=== PATIENT | female | born 1950 | race African-American/Black ===

== ENCOUNTER 2016-04-23 18:15 | Inpatient (IN) | payer OTHER ==
--- NOTE | 2016-04-23 18:54 | PROVIDER DOCUMENTATION ---
HPI-General Adult - General Chief Complaint: Allergic Reaction Stated Complaint: STOMACH PAIN/ITCHING Time Seen by Provider: 04/23/16 18:21 Source: patient Allergies/Adverse Reactions: Patient Allergies Allergy/AdvReac Type Severity Reaction Status Date / Time No Known Allergies Allergy Verified 01/08/15 15:09 Home Medications: Home Medication List Medication Instructions Recorded Confirmed Last Taken Type Bisoprolol Fumarate/Hctz [Ziac 1 each PO DAILY 01/08/15 01/08/15 01/08/15 History 10-6.25 mg Tablet] Estradiol [Estrace] 1 mg PO DAILY 01/08/15 01/08/15 01/08/15 History Fentanyl 25 Microgm/Hr Patch 1 each TD Q72H 01/08/15 01/08/15 01/08/15 History [Duragesic 25 Microgm/Hr Patch] Gabapentin 800 mg PO DAILY 01/08/15 01/08/15 01/08/15 History Hydralazine [Apresoline] 25 mg PO DAILY 01/08/15 01/08/15 01/08/15 History Ibuprofen 400 mg PO Q4-6H PRN PRN #90 tablet 01/08/15 Unknown Rx Insulin Aspart Prot/Insuln Asp 50 unit SQ DAILY 01/08/15 01/08/15 01/08/15 History [Novolog Mix 70-30 Vial] Metformin E.r. [Glucophage Xr] 500 mg PO BID CC 01/08/15 01/08/15 01/08/15 History Mupirocin Ointment [Bactroban 1 applicatn TOP TID #1 tube 01/08/15 Unknown Rx Ointment] Omeprazole [Prilosec] 20 mg PO DAILY@0700 01/08/15 01/08/15 01/08/15 History PRAVAstatin [Pravachol] 40 mg PO DAILY 01/08/15 01/08/15 01/08/15 History Tizanidine [Zanaflex] 4 mg PO QHS 01/08/15 01/08/15 01/08/15 History Diphenoxylate/Atropine [Lomotil] 1 each PO 4XDAY PRN PRN #20 tablet 02/15/15 Unknown Rx - History of Present Illness -Gen Adult Nature of Presenting Problems: Pt is a 66 y/o F c chief compliant of itching x several months. Pt has seen her PCP (Dr. Ribeiro) who prescribed Charo and Decadron. Pt goes to the pain clinic and her pcp thinks that it may be a side effect of the narcotic pain medication. Pt has a h/o back surgery, RA, diabetes. Pt denies exposure to any other persons who may be itching. Review of Systems - Adult - REVIEW OF SYSTEMS - ADULT Constitutional: reports: no symptoms reported. denies: chills, fatique Eyes: reports: no symptoms reported. denies: blurred vision, double vision Ears, Nose, Mouth & Throat: reports: no symptoms reported. denies: ear pain, nose pain Cardiovascular: reports: no symptoms reported. denies: chest pain, orthopnea Respiratory: reports: no symptoms reported. denies: cough, shortness of breath Gastrointestinal: reports: no symptoms reported. denies: abdominal pain, nausea Genitourinary: reports: no symptoms reported. denies: dysuria, frequent UTI's Musculoskeletal: reports: no symptoms reported. denies: joint pain, joint swelling Integumentary: reports: itching, skin sores/ulcer. denies: hives Neurological: reports: no symptoms reported. denies: numbness, paresthesia Psychiatric: reports: no symptoms reported. denies: anxiety, emotional problems Endocrine: reports: no symptoms reported. denies: cold intolerance, heat intolerance Hematologic/Lymphatic: reports: no symptoms reported. denies: blood clots, low blood count Allergic/Immunologic: reports: no symptoms reported. denies: allergic reactions , eczema All Other Systems: Reviewed and Negative Past History - Adult - PAST MEDICAL HISTORY-ADULT Review of Records: reports: Old Records Reviewed, Nursing Assessment Review, Medications Reviewed, Social history reviewed & non-contributory. Major Childhood Illnesses: reports: denies history Cardiovascular: reports: HTN, hyperlipidemia Respiratory: reports: denies history Gastrointestinal: reports: denies history Obstetrical/Gynecological: reports: denies history Genitourinary: reports: denies history Musculoskeletal: reports: denies history Neurological: reports: denies history Endocrine/Immune: reports: Diabetes (insulin dependent. ) Other Conditions: reports: denies history - PRIOR SURGERIES/PROCEDURES Surgical/Procedure History: reports: cholecystectomy, hysterectomy - IMMUNIZATION STATUS Childhood Immunizations: See Nurse Assessment Flu Vaccine: See Nurse Assessment - FAMILY HISTORY Family History: reviewed, not pertinent - SOCIAL HISTORY Smoking: denies Substance Use: none/never Alcohol Use Frequency: never Living Situation: family Physical Exam-General - PHYSICAL EXAM-ADULT Initial Vital Signs Reviewed: Yes - CONSTITUTIONAL General Appearance: appears well, alert, no apparent distress - EYES Eyes: PERRL/EOMI, pink conjunctivae - HEAD, EARS, NOSE, MOUTH & THROAT HENMT: normocephalic/atraumatic, moist mucous membranes, normal ENT inspection - NECK Neck: non-tender - RESPIRATORY Respiratory: chest non-tender, lungs clear, normal breath sounds - CARDIOVASCULAR Cardiovascular: normal peripheral pulses, regular rate, rhythm, no edema - CHEST (BREASTS) Chest/Breast: deferred - GASTROINTESTINAL (ABDOMEN) Abdominal Exam: normal bowel sounds, non tender, soft - LYMPHATIC Lymphatic: no adenopathy - MUSCULOSKELETAL Back Exam: normal inspection, no CVA tenderness, no vertebral tenderness Extremity: normal range of motion, non-tender, normal gait - SKIN Integumentary: rash, other (pruritis) - NEUROLOGIC Neurologic: grossly normal, no motor/sensory deficits - PSYCHIATRIC Psych/Mental Status: normal mood/affect, normal thought content, normal thought process, oriented x 3 Progress - PLAN OF CARE/RESULTS Progress/Plan/Lab Results: Orders Category Date Time Status CT ABD/PELVIS W/ IV CONT ONLY [CT] Stat Exams 04/23/16 21:11 Taken ACETAMINOPHEN [TDM] Stat Lab 04/23/16 20:45 Completed ACETONE SERUM [CHEM] Stat Lab 04/23/16 20:45 Completed AMMONIA [CHEM] Stat Lab 04/23/16 21:20 Completed AMYLASE [CHEM] Stat Lab 04/23/16 21:20 Completed CBC WITH ELECTRONIC DIFF [HEME] Stat Lab 04/23/16 20:05 Completed CMP [COMPREHENSIVE METABOLIC PANEL] [CHEM] Stat Lab 04/23/16 20:05 Completed HEPATITIS PROFILE [HH] Stat Lab 04/23/16 20:45 Received LIPASE [CHEM] Stat Lab 04/23/16 21:20 Completed UA [URINALYSIS PL W/POSS RFLX CULT] [URINALYSIS] Stat Lab 04/23/16 21:35 Completed URINE CULTURE [RM] Routine Lab 04/23/16 21:52 Ordered 0.9% Sodium Chloride Inj [Ns] 1,000 ml Med 04/23/16 20:51 Discontinued IV 999 mls/hr Hydroxyzine Med 04/23/16 18:55 Discontinued 10 mg PO NOW ONE Hydroxyzine Liquid Med 04/23/16 20:08 Discontinued 10 mg .ROUTE .STK-MED ONE Insulin Human Reg Dose ([address] [Humulin R Dose ([place] Med 04/23/16 21:09 Discontinued )] 7 dose .ROUTE .STK-MED ONE Insulin Human Regular [Humulin R] Med 04/23/16 20:52 Discontinued 7 unit IV NOW ONE Lorazepam [Ativan] Med 04/23/16 18:55 Discontinued 1 mg IM NOW ONE Potassium Chloride E.r. [Klor-Con] Med 04/23/16 20:54 Discontinued 40 meq PO NOW ONE Laboratory Tests 04/23/16 04/23/16 04/23/16 20:05 20:05 20:45 WBC 4.62 L RBC 4.67 Hgb 12.4 Hct 37.1 MCV 79.4 L MCH 26.6 L MCHC 33.4 RDW Std Deviation 15.2 H Plt Count 172 MPV 13.2 H Immature Gran % (Auto) 0.0 Neut % (Auto) 55.5 Lymph % (Auto) 36.1 Daniels % (Auto) 7.1 Eos % (Auto) 0.9 Baso % (Auto) 0.4 Immature Gran # (Auto) 0.00 Neut # (Auto) 2.56 Lymph # (Auto) 1.67 Daniels # (Auto) 0.33 Eos # (Auto) 0.04 Baso # (Auto) 0.02 Sodium 133 L Potassium 3.0 L Chloride 91 L Carbon Dioxide 29 Anion Gap 14 BUN 12 Creatinine 0.8 Estimated GFR/1.73 m2 > 60 BUN/Creatinine Ratio 15 Glucose 405 H* Calculated Osmolality 283 Calcium 9.8 Total Bilirubin 6.20 H AST 225 H ALT 197 H Alkaline Phosphatase 1010 H Ammonia Total Protein 8.0 Albumin 4.0 Globulin 4.0 Albumin/Globulin Ratio 1.0 Amylase Lipase Urine Source Urine Color Urine Clarity Urine pH Ur Specific [place] Urine Protein Urine Ketones Urine Blood Urine Nitrite Urine Bilirubin Urine Urobilinogen Urine Microscopic RBC Urine WBC Urine Microscopic WBC Ur Epithelial Cells Urine Bacteria Urine Glucose Acetaminophen Acetone Level NEGATIVE 04/23/16 04/23/16 04/23/16 20:45 21:20 21:20 WBC RBC Hgb Hct MCV MCH MCHC RDW Std Deviation Plt Count MPV Immature Gran % (Auto) Neut % (Auto) Lymph % (Auto) Daniels % (Auto) Eos % (Auto) Baso % (Auto) Immature Gran # (Auto) Neut # (Auto) Lymph # (Auto) Daniels # (Auto) Eos # (Auto) Baso # (Auto) Sodium Potassium Chloride Carbon Dioxide Anion Gap BUN Creatinine Estimated GFR/1.73 m2 BUN/Creatinine Ratio Glucose Calculated Osmolality Calcium Total Bilirubin AST ALT Alkaline Phosphatase Ammonia 24 Total Protein Albumin Globulin Albumin/Globulin Ratio Amylase 51 Lipase 112 H Urine Source Urine Color Urine Clarity Urine pH Ur Specific [place] Urine Protein Urine Ketones Urine Blood Urine Nitrite Urine Bilirubin Urine Urobilinogen Urine Microscopic RBC Urine WBC Urine Microscopic WBC Ur Epithelial Cells Urine Bacteria Urine Glucose Acetaminophen < 1.2 L Acetone Level 04/23/16 21:35 WBC RBC Hgb Hct MCV MCH MCHC RDW Std Deviation Plt Count MPV Immature Gran % (Auto) Neut % (Auto) Lymph % (Auto) Daniels % (Auto) Eos % (Auto) Baso % (Auto) Immature Gran # (Auto) Neut # (Auto) Lymph # (Auto) Daniels # (Auto) Eos # (Auto) Baso # (Auto) Sodium Potassium Chloride Carbon Dioxide Anion Gap BUN Creatinine Estimated GFR/1.73 m2 BUN/Creatinine Ratio Glucose Calculated Osmolality Calcium Total Bilirubin AST ALT Alkaline Phosphatase Ammonia Total Protein Albumin Globulin Albumin/Globulin Ratio Amylase Lipase Urine Source CLEAN CATCH Urine Color YELLOW Urine Clarity CLEAR Urine pH 5.0 Ur Specific [place] 1.010 Urine Protein TRACE A Urine Ketones NEGATIVE Urine Blood NEGATIVE Urine Nitrite NEGATIVE Urine Bilirubin NEGATIVE Urine Urobilinogen 4+(12 mg/dL) Urine Microscopic RBC <10 Urine WBC 1+ A Urine Microscopic WBC <10 Ur Epithelial Cells <10 Urine Bacteria 4+ Urine Glucose 3+(500 mg/dL) A Acetaminophen Acetone Level Vital Signs - 24 hr 04/23/16 18:20 Temperature 97.3 F L Pulse Rate 71 Respiratory 18 Rate Blood Pressure 143/88 O2 Sat by Pulse 100 Oximetry - REASSESSMENT Reassessment #1 Time Reassessed: 21:12 (Discussed c Dr. Chan ( ) who agrees c workup and plan of care. ) - CT/MRI 1 CT Study: Abdomen, Pelvis Impression: Abnormal (s/p cholecystectomy; biliary ductal dilation; dilated pancreatic duct; suggestion of ill-defined mass at pancreatic head, malignancy cannot be excluded; thickened martinez at distal stomach; no bowel obstruction; no free air - prelim radiology report by Dr. Coronel) - CONSULTS/PCP/HOSPITALIST Notification #1 *Consult/PCP/Hospitalist*: Dr. Marquez (Hospitalist) Time Discussed: 22:26 Reason/Comments: Will accept pt and order consults, [facility] Departure - Departure Time of Disposition Order: 22:27 DIAGNOSIS: Itching, Hyperglycemia, Hypokalemia, Pancreatic mass, Dilation of biliary tract Acute liver failure Qualifiers: Hepatic coma status: without hepatic coma Qualified Code(s): K72.00 - Acute and subacute hepatic failure without coma Disposition: HOME 01 Certified Medical Emergency: Emergent Condition: Stable Referrals: Viktor Ribeiro MD [Primary Care Provider] - Kyrie Rodriguez [NON-STAFF] - Call for Appoint. -1 week Attestation - Physician/ RONY Attestation Patient care was provided by Advanced Practice Provider:: Yes Advanced Practice Provider:: Aaron Mccullough Advanced Practice Provider documentation review:: The Mid-level provider documentation, treatment plan and medical decision making was reviewed by the physician who agrees with all treatment and medical decision making by the MLP.
[2016-04-23] MEDS ORDERED: HYDROXYZINE PO ONE (18:55)
[2016-04-23] MEDS ORDERED: ATIVAN IM ONE (18:55)
[2016-04-23] MEDS ORDERED: HYDROXYZINE LIQUID ONE (20:08)
[2016-04-23 20:18] LABS: MANUAL DIFF NEEDED? NO
[2016-04-23 20:26] LABS: BASO% 0.4 % (0.0-0.8); EOS# 0.04 X1000 (0.0-0.7); EOS% 0.9 % (0.0-10.0); HEMATOCRIT 37.1 % (37.0-47.0); HEMOGLOBIN 12.4 g/dL (12.0-16.0); LYMPH# 1.67 X1000 (1.2-3.4); LYMPH% 36.1 % (20.5-51.1); MCH 26.6 PG (27-31); MCHC 33.4 g/dL (33-37); MCV 79.4 FL (81-99); MONO# 0.33 X1000 (0.11-0.59); MONO% 7.1 % (1.7-9.3); MPV 13.2 FL (7.4-10.4); NEUT% 55.5 % (42.2-75.2); PLT 172 X1000 (130-400); RBC 4.67 XMIL (4.2-5.4)
[2016-04-23 20:47] LABS: AGAP 14; ALKALINE PHOSPHATASE 1010 U/L (32-104); BUN 12 mg/dL (8-22); CALCIUM 9.8 mg/dL (8.8-10.2); CHLORIDE 91 mmol/L (98-107); COSMO 283; GOT 225 U/L (10-30); GPT 197 U/L (10-36); SODIUM 133 mmol/L (136-145); TCO2 29 mmol/L (25-35)
[2016-04-23] MEDS ORDERED: NS 1,000 ML IV ONE (20:51)
[2016-04-23] MEDS ORDERED: HUMULIN R IV ONE (20:52)
[2016-04-23] MEDS ORDERED: KLOR-CON PO ONE (20:54)
[2016-04-23] MEDS ORDERED: HUMULIN R DOSE (PARKWAY) ONE (21:09)
[2016-04-23 21:36] LABS: URINE SOURCE CLEAN CATCH
[2016-04-23 21:45] LABS: AMYLASE 51 U/L (20-200); LIPASE 112 U/L (13-60)
[2016-04-23 21:48] LABS: BILIRUBIN URINE NEGATIVE (NEGATIVE); BLOOD URINE NEGATIVE (NEGATIVE); CLARITY CLEAR (CLEAR); COLOR YELLOW; LEUKOCYTES URINE 1+ (NEGATIVE); NITRITE URINE NEGATIVE (NEGATIVE); PROTEIN URINE TRACE mg/dL (NEGATIVE); UROBILINOGEN URINE 4+(12 mg/dL)
[2016-04-23 21:52] LABS: URINE CULTURE PL NEEDED? YES; URINE EPITHELIAL CELLS <10 /HPF (<10); URINE RBC <10 /HPF (<10); URINE WBC <10 /HPF (<10)
[2016-04-23] MEDS ORDERED: NS 1,000 ML IV SCH (22:30)
[2016-04-23] MEDS ORDERED: ZOFRAN IV PRN (23:01)
--- NOTE | 2016-04-24 00:07 | Diag Imaging Result Document ---
PROCEDURE NAME: CT ABD/PELVIS W/ IV CONT ONLY - 04/23/2016 CT ABDOMEN AND PELVIS WITH INTRAVENOUS CONTRAST: TECHNIQUE: Dose reduction protocol. FINDINGS: The gallbladder has been removed. There is intra- and extrahepatic biliary ductal dilation. The common bile duct measures at least 14 mm in diameter. The pancreatic duct measures 8 mm in diameter. No inflammation about the pancreas. No focal hepatic abnormality. Spleen is not enlarged. Normal adrenal glands. Normal enhancement of the kidneys. No hydronephrosis. No aortic aneurysm. There has been extensive surgery to the lower lumbar spine. No bowel obstruction. Normal appendix. No abscess. The urinary bladder is moderately distended and appears normal. The uterus has been removed. A 2.3 cm right adnexal cyst is found laterally and likely rises from the right ovary. There is thickening to the mid and distal stomach although it is incompletely distended. Questionable lesion in the pancreatic head with slight increased enhancement. No other abnormality. IMPRESSION: 1. Cholecystectomy. 2. Intra- and extrahepatic biliary ductal dilatation with a possible mass in the pancreatic head. 3. Questionable thickening to the wall of the stomach. 4. Hysterectomy. 5. Right adnexal cyst. A preliminary report was given at 10:02 p.m.
[2016-04-24] MEDS: PROTONIX IV SCH ×3 (00:55→22:23)
[2016-04-24] MEDS: NS 1,000 ML IV SCH ×2 (00:55→15:22)
[2016-04-24] MEDS: MORPHINE IV PRN (02:23)
[2016-04-24 06:14] LABS: BASO% 0.2 % (0.0-0.8); EOS% 2.3 % (0.0-10.0); HEMATOCRIT 34.2 % (37.0-47.0); HEMOGLOBIN 11.6 g/dL (12.0-16.0); LYMPH# 1.91 X1000 (1.2-3.4); LYMPH% 43.4 % (20.5-51.1); MANUAL DIFF NEEDED? NO; MCH 27.1 PG (27-31); MCHC 33.9 g/dL (33-37); MCV 79.9 FL (81-99); MONO# 0.43 X1000 (0.11-0.59); MONO% 9.8 % (1.7-9.3); NEUT% 44.3 % (42.2-75.2); PLT 156 X1000 (130-400); RBC 4.28 XMIL (4.2-5.4)
--- NOTE | 2016-04-24 06:24 | HISTORY AND PHYSICAL ---
PRIMARY CARE PROVIDER: Viktor Ribeiro MD. CHIEF COMPLAINT: Itching and stomach pain. HISTORY OF PRESENT ILLNESS: This is a 66-year-old, female who presented to the emergency room with itching x1 month. She saw her PCP, Dr. Ribeiro, who prescribed Charo and Decadron. She also apparently goes to the pain clinic. Her PCP thought it was possibly a side effect of the narcotic pain medicine as well. She has a history of rheumatoid arthritis, insulin dependent diabetes mellitus type 2, hypertension, and hyperlipidemia. In the emergency room, initial laboratory data was obtained which showed a glucose of 405 but also noted an AST of 225 and an ALT of 197, alkaline phosphatase of 1010, and a lipase of 112. A CT of her abdomen was obtained that showed biliary duct dilation, a dilated pancreatic duct, a suggestion of an ill- defined mass of the pancreatic head. Also noted thickened martinez of the distal stomach. No bowel obstruction. No free air. She will be admitted with a GI consultation for further evaluation and treatment. PAST MEDICAL HISTORY: 1. Hypertension. 2. Hyperlipidemia. 3. Diabetes mellitus type 2, now insulin-dependent. 4. Chronic pain. PREVIOUS SURGICAL HISTORY: 1. Cholecystectomy. 2. Hysterectomy. 3. C-spine, neck surgery x2. 4. Lumbar, back surgery x1. 5. Shoulder surgery. SOCIAL HISTORY: Lives with her son and daughter. Denies tobacco, alcohol, or illicit drug use or abuse. FAMILY HISTORY: Mother had breast cancer, at age 54. Father from a CVA. ALLERGIES: No known drug allergies. HOME MEDICATIONS: The list was not available. An order was placed for nursing to reconcile home medications. REVIEW OF SYSTEMS: Fourteen point review of systems conducted with the patient. Pertinent positives listed above in the HPI. All other systems negative. PHYSICAL EXAMINATION: VITAL SIGNS: Temperature 98.5 degrees, pulse 61, blood pressure 181/78, oxygen saturation 100% on room air. GENERAL: A pleasant, 66-year-old, female, lying on the medical floor bed. No acute distress. HEENT: Head is atraumatic, normocephalic. Pupils equal, round, reactive to light. Extraocular eye movements intact. Sclerae are slightly jaundiced. Oral mucosa is moist. NECK: Supple. No JVD. No thyromegaly. Trachea is midline. No cervical lymphadenopathy. CARDIAC: Regular rate and rhythm. S1-S2 appreciated. No murmurs, gallops, rubs. LUNGS: Clear to auscultation bilaterally. No rhonchi, wheezes, or rales. ABDOMEN: Soft, diffusely tender. Greatest area tenderness is right upper quadrant. Bowel sounds decreased in all 4 quadrants. No pulsatile mass or organomegaly could be palpated. EXTREMITIES: No clubbing, cyanosis, or edema. There are 2+ pedal pulses bilaterally. GENITOURINARY: The patient voids, otherwise deferred. NEUROLOGICAL: Alert and oriented x3. Cranial nerves 2-12 appear to be grossly intact. SKIN: Warm, dry, and intact. No acute lesions or rash. DIAGNOSTIC DATA: CT of the abdomen and pelvis noted surgically removed gallbladder, biliary ductal dilation, possible mass at the pancreatic head, questionable thickening to the wall of the stomach. Also noted hysterectomy. LABORATORY DATA: WBC 4.62, hemoglobin 12.4, hematocrit 37.1, platelet count 172,000. Sodium 133, potassium 3, chloride 91, carbon dioxide 29, BUN 12, creatinine 0.8, glucose 405 on arrival. Total bilirubin 6.2, AST 225, ALT 197, alkaline phosphate 1010, lipase is 112. ASSESSMENT AND PLAN: 1. Questionable pancreatic mass. 2. Acute hepatitis of unknown etiology. 3. Diabetes mellitus type 2, insulin-dependent with hyperglycemia. 4. Hypertension. PLAN: Admit patient to the medical floor with a GI consultation. Hepatitis panel has been drawn. UA and urine culture have been ordered. Insulin was given IV in the emergency room. We will continue q.4 hour fingersticks with sliding scale insulin. Morphine 2 mg IV q.3 hours as needed for pain. Benadryl 25 mg IV q.4 hours p.r.n. itching. Potassium 40 mEq was given by mouth in the emergency room for hypokalemia. Protonix 40 mg IV q.24 hours. Normal saline at 75 mL an hour will be continued. She received fluid bolusing in the emergency room. Recheck laboratory data. Patient NPO. Went over CT results and laboratory data with the patient and family. They are all in agreement of care plan. Further recommendations per clinical course. Dictated by DEBRA Palafox for Jack Marquez MD
[2016-04-24 06:34] LABS: AGAP 12; ALBUMIN 3.4 g/dL (3.5-5.0); ALKALINE PHOSPHATASE 780 U/L (32-104); BUN 7 mg/dL (8-22); CALCIUM 8.9 mg/dL (8.8-10.2); CHLORIDE 96 mmol/L (98-107); COSMO 277; GOT 182 U/L (10-30); GPT 156 U/L (10-36); SODIUM 137 mmol/L (136-145); TCO2 29 mmol/L (25-35); TOTAL BILIRUBIN 5.97 mg/dL (0.20-1.00); TOTAL PROTEIN 6.6 g/dL (6.3-8.3)
[2016-04-24] MEDS: HUMALOG SUBQ SCH ×4 (07:04→22:17)
[2016-04-24] MEDS: BENADRYL IV PRN ×3 (09:57→22:25)
--- NOTE | 2016-04-24 18:10 | PROGRESS NOTE ---
DATE: 04/24/2016 SUBJECTIVE: Patient admitted early this morning. This is a followup note. 66-year-old black female, presented to the emergency room with itching for a month. Saw her primary care physician Dr. Ribeiro who prescribed Charo and Decadron. Apparently, she goes to the pain clinic. Dr. Ribeiro thought maybe this was a side effect of a narcotic. History of rheumatoid arthritis, insulin-dependent diabetes mellitus type 2, hypertension, hyperlipidemia. In the emergency room, initial laboratory data showed a glucose of 405, AST of 225, ALT of 197, alkaline phosphatase 1010, lipase 112. CT of the abdomen was obtained and showed biliary duct dilatation, dilated pancreatic ducts suggestion of ill-defined mass in the pancreatic head, noted thickened martinez in the distal stomach. No bowel obstruction. No free air. Admitted. States the pain is a little better. The itching is little better at the present time. CT of the abdomen and pelvis, official reading, status post cholecystectomy, intra- and extrahepatic biliary duct dilatation with possible mass in pancreatic head. Questionable thickening in the wall of the stomach. Status post hysterectomy. Right adnexal cyst. The patient is comfortable at the present time. Family is at the bedside, including her daughter and her sister. OBJECTIVE: Vital signs: Temperature 97.7 degrees, pulse 60, respirations 18, blood pressure 125/64. HEENT: Pupils are equal, round. Lungs: Are clear in all lung garcia. Cardiovascular: Regular rhythm and rate without murmur or S3. Abdomen: Soft. He has some tenderness in the epigastrium that is mild. Blood sugars 142 and 218. LABORATORY: White blood cell count 4400, hematocrit 34, platelet count 156,000. Sodium 137, potassium 3, chloride 96, bicarb 29, BUN 7, creatinine 0.7, blood sugar 198, calcium 8.9. Liver functions unremarkable. Lipase was 112, amylase 51, urinalysis 4+ bacteria. ASSESSMENT AND PLAN: 1. Pancreatic mass. Dilated extra- and intrahepatic biliary ducts. GI is consulted. Dr. Hughes. Suspect he will need an endoscopic retrograde cholangiopancreatography. May need an endoscopic retrograde cholangiopancreatography with ultrasound. 2. Diabetes mellitus type 2. Sugars, watch pattern scale. Review of her orders, continue Protonix 40 mg IV daily. IV fluids at normal saline at 75 mL an hour. She is getting some morphine for pain p.r.n. and she gets hydroxyzine as needed.
--- NOTE | 2016-04-24 21:35 | CONSULTATION ---
DATE OF CONSULTATION: 04/24/2016 REASON FOR CONSULTATION: Possible pancreatic mass and biliary obstruction. HISTORY OF PRESENT ILLNESS: A 66-year-old lady presented with pruritus for a month. She was given some Charo and Decadron because she goes to pain clinic and she is on pain medication and it was felt it may be secondary affect. She has a history of rheumatoid arthritis and insulin dependent mellitus, but she was found to have elevated LFTs on admission. CAT scan of the abdomen showed biliary dilation and dilated pancreatic duct and possible pancreatic mass in the head. There is some gastric mucosal thickening as well. PAST MEDICAL HISTORY: 1. Hypertension. 2. Hyperlipidemia. 3. Diabetes mellitus type 2. Now on insulin. 4. Chronic pain. 5. Rheumatoid arthritis. PREVIOUS SURGICAL HISTORY: Cholecystectomy. Hysterectomy. Spinal surgery. Shoulder surgery. SOCIAL HISTORY: Lives with her son and daughter. Does not smoke or drink or use drugs. FAMILY HISTORY: Mother with breast cancer. Father had a CVA. ALLERGIES: None. HOME MEDICATIONS: Patient does not have her list yet. We will check when she gets the list. REVIEW OF SYSTEMS: Fourteen point review done and all systems are negative other than history of present illness. PHYSICAL EXAMINATION: Vital signs: Temperature of 98.5 degrees, pulse 61, blood pressure 181/78. O2 saturation 100% on room air. General: A pleasant 66-year-old lady laying in bed in no acute distress. She does look slightly undernourished. HEENT: Scleral icterus present. Slight mucosal pallor. Neck: Supple. No JVD. No thyromegaly. Trachea midline. No cervical lymphadenopathy. Cardiac: Normal S1, S2. No murmur or rub. Lungs: Clear. Abdomen: Soft. Mild tenderness in the upper abdomen, but no rebound or rigidity. Bowel sounds are present and normal. Extremities: No cyanosis, clubbing, or edema. Neurological: She is alert and oriented. No focal neurological deficit. X-RAY DATA: CAT scan showed possible mass at the pancreatic head and dilated biliary tree. LABORATORY DATA: Hematocrit 37, potassium is low at 3, glucose was high on admission, but is coming down. Bilirubin 6.2, AST 225, ALT 197, alkaline phosphatase 1010, lipase 112. IMPRESSION: 1. Extrahepatic biliary obstruction. 2. Possible pancreatic mass which is causing #1. 3. Diabetes mellitus type 2. 4. Hypertension. 5. History of rheumatoid arthritis. PLAN: We will continue treating her for her diabetes and control the sugars. We will study further and possibly schedule her for endoscopic retrograde cholangiopancreatography on Monday with possible stenting of the biliary tree and/or fine needle biopsy of pancreatic mass. We will follow her.
[2016-04-25] MEDS: NS 1,000 ML IV SCH ×2 (07:16→19:03)
[2016-04-25] MEDS: HUMALOG SUBQ SCH ×4 (07:16→20:51)
--- NOTE | 2016-04-25 14:33 | PROGRESS NOTE ---
DATE: 04/25/2016 SUBJECTIVE: Patient is currently standing next to the bed. She complains of constipation. She was able to eat a light breakfast this morning. OBJECTIVE: Vital signs: Temperature 98.2 degrees, pulse rate of 78, respiratory rate 18, blood pressure 132/74, saturating 98% on room air. Body weight of 132 pounds, 11.2 ounces. General: Moderate built, moderately nourished, sitting in bed, currently in no acute distress. HEENT: Mild pallor. Mild icterus. Neck: Supple. Abdomen: Soft, nontender, nondistended. No rebound or guarding. Extremities: No cyanosis, clubbing. Neurologic: She is alert, awake, oriented. LABS: Her hemoglobin and hematocrit are 11.6 and 34.2 from yesterday. Platelet count of 156,000, white count of 4.4. Her bilirubin was 5.9, AST 182, ALT 156, alkaline phosphatase 78, total protein 6.2, albumin 2.4 from yesterday. Tylenol level was less than 1.2. On 04/23/[address] of the abdomen and pelvis that showed: 1. Cholecystectomy. 2. Intra and extrahepatic biliary ductal dilation with a possible mass in the pancreatic head. 3. Questionable thickening to the wall of the stomach. 4. Hysterectomy. IMPRESSION AND PLAN: 1. Common bile duct obstruction with a questionable pancreatic head mass. Will schedule the patient for ERCP tomorrow by Dr. Hughes. 2. We will start her on a bowel regimen for constipation. 3. Gastrointestinal prophylaxis with Protonix. 4. History of rheumatoid arthritis and hypertension. Per the primary care team. The above plan was discussed with the patient and family at bedside. All questions answered.
--- NOTE | 2016-04-25 15:35 | PROGRESS NOTE ---
DATE: 04/25/2016 SUBJECTIVE: Ms. Phan complains mainly of itching. She does have some epigastric pain, but otherwise comfortable. OBJECTIVE: Vital signs: Temp 98.2 degrees, pulse 78, respirations 18, blood pressure 132/74. Neck: CVP less than 6 cm. Lungs: Clear anterolateral Cardiovascular: Regular rhythm and rate without murmur or S3. Abdomen: Soft. Skin: Warm and dry. Intake and output: Urine output was about 1400 mL. LAB: Note that blood sugar is 257, 239. Lab work from yesterday, hematocrit was 34, hemoglobin 11. Chemistries: Elevation of liver enzymes. AST was 182, ALT 156. CT of the abdomen and pelvis on the 4th: Status post cholecystectomy, intra and extrahepatic biliary duct dilatation, possible mass in pancreatic head, questionable thickening of the wall of the stomach, status post hysterectomy, right adrenal cyst noted. Seen by Dr. Hughes yesterday. IMPRESSIONS: 1. Intrahepatic biliary obstruction. 2. Possible pancreatic mass which was caused by #1. Plan to do ERCP I think on Monday and stenting of the biliary tree. May be able to get a biopsy of the pancreatic mass, that is the plan. 3. Acute hepatitis, unknown etiology. 4. Diabetes mellitus type 2. Follow pattern sugars with sliding scale. 5. Hypertension. Blood pressure appears controlled. In looking over her orders, I do not see any change at this point. IV fluids going with normal saline at 75 mL an hour.
[2016-04-25] MEDS: MIRALAX PO SCH ×2 (19:03→20:52)
[2016-04-25] MEDS: SODIUM CHLORIDE 0.9% INJ SCH (23:05)
[2016-04-25] MEDS: PROTONIX IV SCH (23:06)
[2016-04-26] MEDS: NS 1,000 ML IV SCH ×2 (01:53→19:16)
[2016-04-26] MEDS: HUMALOG SUBQ SCH ×3 (06:49→22:26)
[2016-04-26 10:15] LABS: HEPATITIS PROFILE ACUTE SEE COMMENTS (())
[2016-04-26] MEDS ORDERED: MYLICON DROPS (DOSE) MISC ONE (15:21)
[2016-04-26] MEDS ORDERED: DIPRIVAN 1% ONE (15:44)
[2016-04-26] MEDS ORDERED: FENTANYL ONE (15:44)
--- NOTE | 2016-04-26 16:42 | PROGRESS NOTE ---
DATE: 04/26/2016 SUBJECTIVE: Today Ms. Phan referred to be doing okay. Denies any choluria or acholia and no abdominal pain. OBJECTIVELY: Vitals: Reviewed, stable. Blood pressure is 155/88, pulse of 88, respirations 16, temperature 98.9 degrees. General: Ms. Phan is a 66-year-old female. She was in bed. No distress. HEENT: Mucosa is pink and moist. Anicteric and acyanotic. Neck: Supple. Chest: Clear. Cardiovascular: Regular rate and rhythm. Abdomen: Soft. Extremities: No pedal edema. TELECOMMUNICATIONS LINE MECHANIC: Patient is alert and oriented x4. There is no focal neurological deficit. LABORATORY DATA: None for today. ASSESSMENT: 1. Obstructive jaundice with elevated alkaline phosphatase and intrahepatic biliary dilatation. 2. Suspected mass at the head of the pancreas. 3. Acute hepatitis likely related to the head of the pancreas disease process. 4. Diabetes mellitus. 5. Hypertension. PLAN: Patient is relatively stable. We will going to continue with the current plan the patient is pending endoscopic retrograde cholangiopancreatography today. Hopefully we will be to do that and plan for her discharge soon.
[2016-04-26] MEDS ORDERED: VERSED ONE (16:49)
[2016-04-26] MEDS: MIRALAX PO SCH ×2 (19:16→22:26)
[2016-04-26] MEDS: MORPHINE IV PRN (20:35)
[2016-04-26 21:21] LABS: ALBUMIN 3.1 g/dL (3.5-5.0); TOTAL BILIRUBIN 9.05 mg/dL (0.20-1.00); TOTAL PROTEIN 6.1 g/dL (6.3-8.3)
[2016-04-26] MEDS: PROTONIX IV SCH (22:26)
[2016-04-26] MEDS: SODIUM CHLORIDE 0.9% INJ SCH (22:26)
[2016-04-27] MEDS: NS 1,000 ML IV SCH ×3 (02:04→23:16)
[2016-04-27] MEDS: MORPHINE IV PRN ×6 (03:15→18:51)
[2016-04-27] MEDS: HUMALOG SUBQ SCH ×4 (06:32→21:17)
[2016-04-27 06:47] LABS: AGAP 18; ALKALINE PHOSPHATASE 643 U/L (32-104); BUN 5 mg/dL (8-22); CALCIUM 7.6 mg/dL (8.8-10.2); CHLORIDE 98 mmol/L (98-107); COSMO 271; GOT 122 U/L (10-30); GPT 110 U/L (10-36); POTASSIUM 2.8 mmol/L (3.5-5.1); SODIUM 135 mmol/L (136-145); TCO2 19 mmol/L (25-35); TOTAL BILIRUBIN 9.25 mg/dL (0.20-1.00); TOTAL PROTEIN 6.2 g/dL (6.3-8.3)
[2016-04-27 06:57] LABS: BASO% 0.5 % (0.0-0.8); EOS# 0.06 X1000 (0.0-0.7); EOS% 1.4 % (0.0-10.0); HEMATOCRIT 30.8 % (37.0-47.0); HEMOGLOBIN 10.6 g/dL (12.0-16.0); LYMPH% 30.4 % (20.5-51.1); MANUAL DIFF NEEDED? NO; MCH 27.1 PG (27-31); MCHC 34.4 g/dL (33-37); MCV 78.8 FL (81-99); MONO# 0.48 X1000 (0.11-0.59); MONO% 11.2 % (1.7-9.3); NEUT% 56.5 % (42.2-75.2); PLT 160 X1000 (130-400); RBC 3.91 XMIL (4.2-5.4)
[2016-04-27 09:26] LABS: IRON SATURATION 34 %; TIBC 255 ug/dL; TOTAL IRON 86 ug/dL (49-151); UNBOUND IRON 169 ug/dL (112-346)
[2016-04-27 09:30] LABS: HEMOGLOBIN A1C 11.5 % (4.8-6.0)
[2016-04-27] MEDS: NOVOLOG MIX 70/30 SUBQ SCH (09:50)
[2016-04-27] MEDS: MIRALAX PO SCH ×2 (09:51→21:17)
--- NOTE | 2016-04-27 16:38 | PROGRESS NOTE ---
DATE: 04/27/2016 SUBJECTIVE: This morning Ms. Phan referred to be doing a little bit okay, still continues to have some mild epigastric mid abdomen pain radiating to the back. She says she had 1 episode of vomiting early this morning. OBJECTIVE: Vital Signs: Stable. Blood pressure is 158/79, pulse of 80, respiration is 18, temperature is 99. General: Ms. Phan is a 66-year-old, female. She is in bed. She did not seem to be in any distress. HEENT: Mucosa is pink and moist. Minimally icteric. Neck: Supple. Chest: Good air entry bilateral. No crepitations. No rhonchi. Cardiovascular: Regular rate and rhythm. Abdomen: Soft, minimally tender in the epigastrium. No hepatosplenomegaly. MOLDER SHOULDER PAD: Patient is alert and oriented x4. There is no focal neurological deficit. LABORATORY DATA: CBC is 4.28, hemoglobin is 10.6, platelet count of 160,000. Sodium is 135, potassium is 2.8, chloride is 98, bicarb is 19, glucose is 166. Total bilirubin is 9.25. AST is 122. ALT is 110. Alkaline phosphatase is 643. ASSESSMENT: 1. Obstructive jaundice with elevated alkaline phosphatase and intrahepatic biliary dilatation with a suspected mass at the head of the pancreas. The patient had an endoscopic retrograde cholangiopancreatography done yesterday. We are still pending the official report on this, but the preliminary report did show malignant stricture. 2. Acute hepatitis, likely due to the underlying disease process in the pancreas. 3. Diabetes mellitus. We will continue with the insulin regimen. 4. Hypertension. 5. Hypokalemia. We will replace this. GENERAL PLAN: 1. Patient is clinically stable. I spoke with Dr. Bal today about the report on the endoscopic retrograde cholangiopancreatography. According to him, this was done actually by Dr. Hughes and from the look of the nursing documentation it seems there was no stent even able to be placed because of the malignant stricture. He advised to get the patient to a tertiary institution if possible. 2. I spoke with Dr. Dubose who is the Gastroenterology physician wafer production lead worker in [place]. He has agreed to accept the patient as soon as there is a bed space. We will get everything ready and get the patient transferred to [place] for a higher gastrointestinal care. 3. I have communicated this to the patient nurse for today to be on the look out for any document that will probably come from [place].
--- NOTE | 2016-04-27 16:46 | PROGRESS NOTE ---
DATE: 04/27/2016 GASTROENTEROLOGY FOLLOWUP: SUBJECTIVE: Patient is currently resting in bed. She denies any new complaints. OBJECTIVE: Vitals: Temperature of 99 degrees, pulse rate of 80, respiratory rate 18, blood pressure 150/79, saturating 100% on room air. Body weight of 132 pounds 11.2 ounces. General appearance: She is moderately nourished, lying in bed, in no acute distress. HEENT: Icteric sclerae. Mild pallor. Neck: Supple. Abdomen: Soft, nondistended. No guarding or rebound. Extremities: No cyanosis or clubbing. Neurologic: She is alert, awake, oriented. LABS: Her hemoglobin and hematocrit is 10.6 and 30.8, white count of 4.2, platelet count of 160,000. Sodium of 132, potassium 2.8, chloride 98, bicarb 19, anion gap of 18, BUN of 5, creatinine of 0.6, glucose of 166. Calcium is 0.6. Total bilirubin is 9.25. AST 122, ALT 110, alkaline phosphatase 643, total protein 6.2, albumin of 3. CA 19-9 is currently pending. 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 We will follow up the report of the ERCP which has not been transcribed yet. We will follow the CA 19-9. 1. I discussed the plan of care with Dr. Araujo. The plan was to consider transferring her to a tertiary level care facility for possible EUS and possible surgery, like [facility]. 2. We will follow up on liver enzymes. 3. We will keep her on gastrointestinal prophylaxis and on a bowel regimen. 4. Further recommendations to follow pending hospital course.
[2016-04-27] MEDS: CELEXA PO SCH (21:47)
[2016-04-27] MEDS: ATIVAN PO SCH (21:47)
[2016-04-28 05:44] LABS: MANUAL DIFF NEEDED? NO
[2016-04-28 06:00] LABS: BASO% 0.1 % (0.0-0.8); EOS# 0.02 X1000 (0.0-0.7); EOS% 0.1 % (0.0-10.0); HEMATOCRIT 30.1 % (37.0-47.0); HEMOGLOBIN 10.6 g/dL (12.0-16.0); IMM GRAN# 0.05 X1000 (0.0-0.04); IMM GRAN% 0.4 % (0.0-0.5); LYMPH# 1.09 X1000 (1.2-3.4); LYMPH% 7.8 % (20.5-51.1); MCH 27.3 PG (27-31); MCHC 35.2 g/dL (33-37); MCV 77.6 FL (81-99); MONO# 1.22 X1000 (0.11-0.59); MONO% 8.7 % (1.7-9.3); MPV 12.8 FL (7.4-10.4); NEUT% 82.9 % (42.2-75.2); PLT 185 X1000 (130-400); RBC 3.88 XMIL (4.2-5.4)
[2016-04-28 06:05] LABS: AGAP 20; ALBUMIN 2.9 g/dL (3.5-5.0); ALKALINE PHOSPHATASE 604 U/L (32-104); BUN 5 mg/dL (8-22); CALCIUM 7.7 mg/dL (8.8-10.2); CHLORIDE 97 mmol/L (98-107); COSMO 274; GOT 95 U/L (10-30); GPT 96 U/L (10-36); POTASSIUM 2.6 mmol/L (3.5-5.1); SODIUM 134 mmol/L (136-145); TCO2 17 mmol/L (25-35); TOTAL BILIRUBIN 10.56 mg/dL (0.20-1.00); TOTAL PROTEIN 6.2 g/dL (6.3-8.3)
[2016-04-28] MEDS ORDERED: KLOR-CON PO ONE (06:15)
[2016-04-28] MEDS: HUMALOG SUBQ SCH ×4 (06:25→21:35)
[2016-04-28] MEDS: PRILOSEC PO SCH (06:25)
[2016-04-28] MEDS: APRESOLINE PO SCH (08:28)
[2016-04-28] MEDS: NEURONTIN PO SCH (08:28)
[2016-04-28] MEDS: ZIAC 10/6.25 MG PO SCH (08:28)
[2016-04-28] MEDS: GLUCOPHAGE XR PO SCH ×2 (08:28→18:14)
[2016-04-28] MEDS: NOVOLOG MIX 70/30 SUBQ SCH (08:28)
[2016-04-28] MEDS: PRAVACHOL PO SCH (08:28)
[2016-04-28] MEDS: MIRALAX PO SCH (11:41)
--- NOTE | 2016-04-28 11:42 | PROGRESS NOTE ---
DATE: 04/28/2016 SUBJECTIVE: Patient resting in bed. She denies any abdominal pain. She had grits this morning. She moved bowels this morning. The patient is awaiting a bed at [facility] for EUS, ERCP, and possible pancreatic surgery. PHYSICAL EXAMINATION: Vital signs: Temp 98.5 degrees, pulse of 81, respiratory 16, blood pressure was 84/41, saturating 100% on nasal cannula. General appearance: Moderately built, moderately nourished, lying in bed, in no acute distress. HEENT: Pale conjunctivae. Anicteric sclerae. Neck: Supple. Abdomen: Soft and nondistended. No guarding or rebound. Extremities: No cyanosis, clubbing. Neurologic: She is alert, awake, oriented. LABS: Her hemoglobin and hematocrit are 10.6 and 30.1, white count 13.97, platelet count of 185,000, MCV of 77.6. Sodium 131, potassium 2.6, chloride 97, bicarb of 17, anion gap of 20, BUN of 5, creatinine 0.7, glucose of 256, calcium 7.7, total bilirubin is 10.56, AST 95, ALT 96, alkaline phosphatase 64, total protein 6.2, albumin of 2.9. Her CA-19-9 is still pending. IMPRESSION AND PLAN: 1. Obstructive jaundice with elevated total bilirubin and malignant stricture and pancreatic head mass on imaging highly suspicious of pancreatic cancer. She is currently awaiting a bed at [facility] for EUS, ERCP, and possible pancreatic surgery. 2. Leukocytosis, elevated bilirubin, and mild hypertension. Could be a sign of ascending cholangitis because of ongoing obstruction. We will start her on antibiotics and do a sexton culture. 3. Gastrointestinal prophylaxis with Protonix. 4. Continue bowel regimen. 5. We will follow along. Further recommendations pending the above. [facility]
[2016-04-28] MEDS: ZOSYN 3.375 GM/NS 50 ML IV SCH ×3 (13:13→21:34)
[2016-04-28] MEDS: MORPHINE IV PRN ×3 (15:41→21:36)
--- NOTE | 2016-04-28 16:59 | PROGRESS NOTE ---
DATE: 04/28/2016 SUBJECTIVE: Today Ms. Phan referred to be doing okay. She did complain of multiple episodes of diarrhea. The patient was on MiraLAX, so we will discontinue that. OBJECTIVE: Vital Signs: Vitals stable. Blood pressure is 160/62, pulse of 72, respirations 16, temperature is 98.2 degrees. General: Ms. Phan is a 66-year-old, female. She was in bed. She did not seem to be in any distress. HEENT: Mucosa is pink and moist. Anicteric. Acyanotic. Neck: Supple. Chest: Clear. Cardiovascular: Regular rate and rhythm. Abdomen: Soft and nontender in the epigastrium. No hepatosplenomegaly. Bowel sounds were present. TONGUE AND GROOVE MACHINE FEEDER: Patient was alert and oriented x4. There is no focal neurological deficit. Extremities: No pedal edema. LABORATORY DATA: WBC 13.97, hemoglobin is 10.6, platelet count of 185. Chemistries reviewed: Sodium is 134, potassium is 2.6, chloride 97, bicarbonate 17, glucose of 256. AST is 95, ALT is 96, and alkaline phosphatase is 604. So far, urine culture is negative. Blood cultures have been done today. ASSESSMENT: 1. Obstructive jaundice with elevated alkaline phosphatase and intrahepatic biliary dilatation with a suspected mass in the head of the pancreas. 2. Acute hepatitis, likely due to underlying pancreatic process. 3. Diabetes mellitus. 4. Hypertension. 5. Hypokalemia. 6. Diarrhea likely secondary to MiraLAX. This has been discontinued. GENERAL PLAN: The patient seems to be stable. Liver enzymes are gradually improving. WBC is slightly high and, because of the obstructive jaundice, there is a concern this could potentially be ascending colitis and patient has been started on antibiotics. We are also going to replace the potassium. We will continue with the insulin, the metformin and keep eye on her diarrhea. In terms of the disposition, we are still waiting for a bed at [facility]. Called out today and again there is no bed. I reached out to [place]; they got all her information and they will try and call us if there is a bed available.
[2016-04-28] MEDS: NS 1,000 ML IV SCH (18:14)
[2016-04-28] MEDS: CELEXA PO SCH (21:35)
[2016-04-28] MEDS: ATIVAN PO SCH (21:35)
[2016-04-29] MEDS: ZOSYN 3.375 GM/NS 50 ML IV SCH ×3 (03:59→11:42)
[2016-04-29] MEDS: NS 1,000 ML IV SCH (04:32)
[2016-04-29] MEDS: PRILOSEC PO SCH (06:20)
[2016-04-29] MEDS: HUMALOG SUBQ SCH ×3 (06:20→16:02)
[2016-04-29 06:44] LABS: BASO% 0.1 % (0.0-0.8); EOS# 0.06 X1000 (0.0-0.7); EOS% 0.5 % (0.0-10.0); HEMATOCRIT 29.9 % (37.0-47.0); HEMOGLOBIN 10.6 g/dL (12.0-16.0); IMM GRAN# 0.04 X1000 (0.0-0.04); IMM GRAN% 0.4 % (0.0-0.5); LYMPH# 1.58 X1000 (1.2-3.4); LYMPH% 14.2 % (20.5-51.1); MANUAL DIFF NEEDED? NO; MCH 27.2 PG (27-31); MCHC 35.5 g/dL (33-37); MCV 76.7 FL (81-99); MONO% 9.9 % (1.7-9.3); NEUT% 74.9 % (42.2-75.2); PLT 199 X1000 (130-400)
[2016-04-29 07:39] LABS: AGAP 22; ALBUMIN 2.6 g/dL (3.5-5.0); ALKALINE PHOSPHATASE 591 U/L (32-104); BUN 4 mg/dL (8-22); CALCIUM 7.8 mg/dL (8.8-10.2); CHLORIDE 98 mmol/L (98-107); COSMO 270; GOT 89 U/L (10-30); GPT 79 U/L (10-36); POTASSIUM 2.8 mmol/L (3.5-5.1); SODIUM 135 mmol/L (136-145); TCO2 15 mmol/L (25-35); TOTAL BILIRUBIN 11.59 mg/dL (0.20-1.00); TOTAL PROTEIN 5.6 g/dL (6.3-8.3)
[2016-04-29] MEDS: NOVOLOG MIX 70/30 SUBQ SCH (08:18)
[2016-04-29] MEDS: GLUCOPHAGE XR PO SCH ×2 (08:22→16:14)
[2016-04-29] MEDS: APRESOLINE PO SCH (08:23)
[2016-04-29] MEDS: PRAVACHOL PO SCH (08:25)
[2016-04-29] MEDS: ZIAC 10/6.25 MG PO SCH (08:26)
[2016-04-29] MEDS: NEURONTIN PO SCH (08:33)
[2016-04-29] MEDS ORDERED: 1/2 NS + KCL 20 MEQ 1,000 ML IV SCH (09:00)
[2016-04-29 10:34] LABS: ACETAMINOPHEN < 1.2 ug/mL (10-30)
--- NOTE | 2016-04-29 13:10 | OPERATIVE NOTE ---
PROCEDURE DATE: 04/29/2016 PROCEDURE: ERCP. PREOPERATIVE DIAGNOSIS: Extrahepatic cholestasis with obstruction of the biliary tree. POSTOPERATIVE DIAGNOSIS: Pancreatic malignancy with high grade obstruction of the common bile duct. Unable to stand. DESCRIPTION OF PROCEDURE: After informed consent and adequate intravenous sedation, the scope introduced through the esophagus, stomach and duodenum. There is no obvious tumor in the ampullary area on in the duodenum. Pancreatogram reveals total "destruction" of the duct in the head. I could feel the distal duct. Several attempts to get into the bile duct were unsuccessful even using the smallest guidewire 0.16. At this time the procedure was stopped. We will try to get to [facility] and get this done with an endoscopic ultrasound guided biopsy as well as stent placement. Patient has CA 19 of close to 2000 and the appearance is clearly pancreatic malignancy. Will get her transferred as soon as the beds are available.
[2016-04-29 13:40] VITALS: BP 136/74
[2016-04-29] MEDS: MORPHINE IV PRN (16:04)
--- NOTE | 2016-04-29 16:52 | PROGRESS NOTE ---
DATE: 04/29/2016 Today Ms. Phan referred to be doing okay. Continues to have diarrhea. Otherwise no major complaints. OBJECTIVELY: Vitals: Her blood pressure is 136/74, pulse of 58, respirations 20, temperature 98.5 degrees. General: Ms. Phan is a 69-year-old female. She is in bed, no distress. HEENT: Mucosa is pink and moist. Anicteric. Acyanotic. Neck: Supple. Chest: Clear. Cardiovascular: Regular rate and rhythm. No murmurs, no rubs. No gallops. Abdomen: Soft. No hepatosplenomegaly. CORN CUTTER OPERATOR: Patient is alert and oriented x4. There is no focal neurological deficit. Extremities: No pedal edema. LABORATORY DATA: Have been reviewed. WBC is 11.14, hemoglobin 10.6, platelet count of 199,000. Chemistry: Sodium is 135, potassium is 2.8, chloride is 99, bicarb is 15 with a gap of 22. Liver enzymes AST is 85, ALT is 79, alkaline phosphatase is 591. They are all coming down. Direct bilirubin is 11.59. The CA-19-9 is 1836. ASSESSMENT: 1. Obstructive jaundice with elevated alkaline phosphatase and intrahepatic biliary dilatation and suspected pancreatic mass with also elevated CA-19-9. All these are pointing to the fact that this is pancreatic cancer. 2. Diabetes mellitus. 3. Hypertension. 4. Hypokalemia. 5. Diarrhea. 6. High anion gap metabolic acidosis. So far, lactic acid is negative. Acetone is negative. Salicylate is negative. I think this is probably from combination of losing bicarb in the diarrhea as well as some hypoperfusion or some dehydration or hypoperfusion from volume contraction For today we are going to start the patient on IV fluids with a baseline potassium supplementation. I have called Dr. Hughes about the patient and he is going to also try and see if we can get her to any tertiary institution for better care. I called [place]. Spoke with Dr. Bolton, the GI doctor faculty i on call medical assistant and he is willing to accept the patient however there is not any bed at this point in time. So will continue correcting the acid-base disturbance. LFTs are trending down. We will just wait and see if we get luck in sending her to a tertiary institution. In the interim patient will continue to be on antibiotics just for the concern of possible ascending cholangitis. We are going to send her urine for culture, WBC and also C. difficile. We will review the patient tomorrow. If bilirubin continues to go high Dr. Hughes recommended we consult IR to see if they will be able to do transhepatic cholangiogram with stent placement or a percutaneous CBD decompression.
--- NOTE | 2016-04-29 22:37 | DISCHARGE SUMMARY ---
ADMISSION DATE: 04/23/2016 DISCHARGE DATE: 04/29/2016 DISPOSITION: [facility] [place] [id number]. ADMISSION PHYSICIAN: Dr. Dubose in the GI Department. CONSULTATIONS DURING THIS ADMISSION: GI was consulted. The patient was seen by Dr. Hughes. INVASIVE PROCEDURES DONE DURING THIS ADMISSION: An attempted ERCP was done but was unsuccessful. IMAGING STUDIES: At the time of admission, a CT scan was done which showed intra and extrahepatic biliary duct dilatation with possible mass in the pancreatic head. ADMISSION DIAGNOSES: 1. Questionable pancreatic mass. 2. Acute hepatitis. 3. Diabetes mellitus. 4. Hypertension. DIAGNOSES AT THE TIME OF TRANSFER: 1. Obstructive jaundice with elevated alkaline phosphatase and intrahepatic biliary dilatation. 2. Suspected pancreatic mass with elevated CA19.9. 3. Acute hepatitis likely due to underlying pancreatic process. 4. Diabetes mellitus. 5. Hypertension. 6. Suspected ascending cholangitis. PRESENTING COMPLAINT: Itchiness, stomach pain. HISTORY OF PRESENTING COMPLAINT: Ms. Phan is a 66-year-old female who presented to the emergency room due to a 1-month history of itching. Her PCP had given her Charo and Decadron but this does not seem to have improved. She therefore came to the emergency department for further evaluation. Upon presentation, the patient was evaluated, was found to have elevated liver enzymes. Alkaline phosphatase was remarkably elevated. A CT scan of the abdomen was done which showed intra and extra biliary duct dilatation with suspicion of pancreatic head mass. The patient was subsequently admitted for further management. HOSPITAL COURSE: The patient was admitted to medical floor, was hydrated, kept n.p.o. and GI was consulted. The patient was seen by Dr. Hughes. ERCP was planned. This was attempted. From Dr. Hughes's report, there was a tight malignant stricture and several attempts were made to get into the bile duct, but it was unsuccessful. The patient was brought up to the medical floor. We started looking for transfer options to other tertiary institutions where the patient can be seen. We called among others [place], [facility], [place]. Finally, there was a bed today after 3 days of wait. There was a bed at [facility]. The patient was successfully transferred for higher care. Of note, I also spoke with Dr. Bolton in [place] who was also willing to take the patient, but there was no bed at the time in [place]. The patient was therefore transferred to [place] in stable condition. Please refer to the details of my progress note for today.
--- NOTE | 2016-05-19 09:24 | DISCHARGE SUMMARY ---
ADMISSION DATE: 04/23/2016 DISCHARGE DATE: 04/29/2016 DISCHARGE SUMMARY ADDENDUM: UPDATED DISCHARGE DIAGNOSIS: Pancreatic mass, suspected pancreatic cancer.
== END 2016-04-29 18:49 | disposition short-term general hospital (02) | DRG 435 ==
LOC: P.ED 18:15 → 4N 22:42
PROVIDERS: ATTEND Internal Medicine
PROC: BF18YZZ Fluoroscopy of Pancreatic Ducts using Other Contrast (ICD-10-PCS; principal; 2016-04-26 15:10)
DX: C25.9 Malignant neoplasm of pancreas, unspecified (principal); K83.1 Obstruction of bile duct; K72.00 Acute and subacute hepatic failure without coma; E87.2 Acidosis; K83.0 Cholangitis; D64.9 Anemia, unspecified; K86.9 Disease of pancreas, unspecified; E11.65 Type 2 diabetes mellitus with hyperglycemia; E87.6 Hypokalemia; I10 Essential (primary) hypertension; E11.40 Type 2 diabetes mellitus with diabetic neuropathy, unspecified; M06.9 Rheumatoid arthritis, unspecified; E78.5 Hyperlipidemia, unspecified; K21.9 Gastro-esophageal reflux disease without esophagitis; R19.7 Diarrhea, unspecified; Z79.899 Other long term (current) drug therapy; Z79.84 Long term (current) use of oral hypoglycemic drugs; Z79.4 Long term (current) use of insulin; Z82.3 Family history of stroke; Z80.3 Family history of malignant neoplasm of breast
CPT/HCPCS: 74177; 74328; 80053; 80074; 80076; 81001; 82009; 82140; 82150; 82378; 82728; 82948; 83036; 83540; 83550; 83605; 83690; 85025; 86301; 87040; 87088; 94761; 96361; 96372; 96374; C1769; C9113; G0480; J1200; J1815; J2060; J2250; J2270; J2405; J2543; J3010; J3480; J7030; Q9966; Q9967; 80324; 80329; S0164